=== PATIENT | female | born 1960 | race African-American/Black ===

== ENCOUNTER 2017-08-23 14:15 | Emergency (ER) | payer OTHER ==
[~2017-08-23] VITALS: Ht 152.4 cm; Wt 54.0 kg
[~2017-08-23 14:15] MED LIST: ACETAMINOPHEN500 MG PO; ADVAIR 500/501 DISK IH; CALTRATE 600600 MG PO; CEFDINIR300 MG PO; CETIRIZINE HCL10 M2 PO; DIABETIC TUSSI118 ML PO; DILTZAC ER120 MG PO; FLONASE16 G1 BOTH NARES; METFORMIN HCL500 MG PO; POTASSIUM CHLO10 ME3 PO; PRESERVISIO1 CAPSULE; PREVACID30 MG PO; SINGULAIR10 MG PO; VYTORIN 10-101 EACH PO; ZANAFLEX4 MG PO
[2017-08-23 16:43] LABS: CHLORIDE 107 mEq/L (99-109); POTASSIUM 4.2 mEq/L (3.7-5.4); SODIUM 140 mEq/L (136-147)
[2017-08-23 16:45] LABS: GLUCOSE 84 mg/dL (70-99)
[2017-08-23 16:49] LABS: CREATININE 0.7 mg/dL (0.6-1.3); GFR ESTIMATE (CALCULATED) > 59 mL/min/
[2017-08-23 16:50] LABS: UREA NITROGEN (BUN) 12 mg/dL (9-23)
[2017-08-23 16:52] LABS: HEMOGLOBIN 9.9 G/DL (11.9-15.5); MCH 21.9 PG (29.0-34.0); PLATELET COUNT 394 K/uL (156-360); RBC DIS.WIDTH-CV 22.7 % (11.8-14.6); RED BLOOD COUNT 4.52 M/uL (3.80-5.20); WHITE BLOOD COUNT 6.5 K/uL (4.1-10.2)
[2017-08-23 17:38] LABS: APPEARANCE CLOUDY ((CLEAR)); BILIRUBIN NEGATIVE; BLOOD MODERATE; COLOR YELLOW ((YELLOW)); GLUCOSE (STRIP) NEGATIVE; KETONES 5; LEUKOCYTES LARGE; NITRITE POSITIVE; PROTEIN (STRIP) 100; SPECIFIC GRAVITY 1.016 (1.000-1.030)
[2017-08-23 18:17] LABS: BACTERIA 3+ /HPF; EPITHELIAL CELLS 1+ /HPF; MUCUS 1+ /LPF; RED BLOOD CELLS 0-5 /HPF (0-5); WHITE BLOOD CELLS TNTC /HPF (0-5)
[2017-08-23] MEDS ORDERED: KEFLEX500 MG PO (18:31)
[2017-08-23 18:48] VITALS: BP 141/89
== END 2017-08-23 18:49 | disposition home or self-care (01) ==
LOC: EME 14:15
PROVIDERS: Physician Assistant
DX: N39.0 Urinary tract infection, site not specified (principal); R50.9 Fever, unspecified; G80.9 Cerebral palsy, unspecified; E11.9 Type 2 diabetes mellitus without complications; Z79.84 Long term (current) use of oral hypoglycemic drugs; Z99.3 Dependence on wheelchair; Z87.440 Personal history of urinary (tract) infections; E78.5 Hyperlipidemia, unspecified; I10 Essential (primary) hypertension; J45.909 Unspecified asthma, uncomplicated; K21.9 Gastro-esophageal reflux disease without esophagitis
CPT/HCPCS: 71010; 80048; 81003; 85027; 87077; 87086; 87186; 99281; 99284

== ENCOUNTER → 2017-09-29 | Outpatient (CLI) | payer OTHER ==
[~2017-09-29] VITALS: Ht 134.6 cm; Wt 55.0 kg
[~2017-09-29] MED LIST changes: +ALBUTEROL2.5 MG/3 M IH; +COMPAZINE10 MG PO; +DUCODYL5 MG PO; +KEFLEX500 MG PO; +MAGNESIUM CITR296 M1 PO; +MIRALAX255 GM PO; +MUCINEX DM ER1 EACH PO; +ROBAFEN DM COU118 M1 PO; +SULFAMETHOXAZO1 EAC5 PO
== END | disposition home or self-care (01) ==
LOC: AMB 13:26
PROVIDERS: Internal Medicine Gastroenterology
DX: K22.70 Barrett's esophagus without dysplasia (principal); D12.0 Benign neoplasm of cecum; D12.3 Benign neoplasm of transverse colon; K44.9 Diaphragmatic hernia without obstruction or gangrene; K31.7 Polyp of stomach and duodenum; G80.9 Cerebral palsy, unspecified; Z99.3 Dependence on wheelchair; Z74.8 Other problems related to care provider dependency; E11.9 Type 2 diabetes mellitus without complications; Z79.84 Long term (current) use of oral hypoglycemic drugs; I10 Essential (primary) hypertension; E78.5 Hyperlipidemia, unspecified
CPT/HCPCS: 82948; 88305; 88342 TC; 93005; Q0175

== ENCOUNTER 2017-10-28 11:47 | Emergency (ER) | payer OTHER ==
[~2017-10-28] VITALS: Ht 139.7 cm; Wt 30.7 kg
[2017-10-28 12:46] LABS: HEMATOCRIT 29.9 % (36.0-46.0); HEMOGLOBIN 8.6 G/DL (11.9-15.5); MCH 19.3 PG (29.0-34.0); MCHC 28.8 G/DL (30.0-36.0); MCV 67.2 FL (83-99); PLATELET COUNT 331 K/uL (156-360); RBC DIS.WIDTH-CV 17.9 % (11.8-14.6); RBC DIS.WIDTH-SD 42.5 % (39-53); RED BLOOD COUNT 4.45 M/uL (3.80-5.20); WHITE BLOOD COUNT 7.9 K/uL (4.1-10.2)
[2017-10-28 12:56] LABS: ALBUMIN 4.2 g/dL (3.2-4.8)
[2017-10-28 12:57] LABS: CHLORIDE 106 mEq/L (99-109); SODIUM 141 mEq/L (136-147)
[2017-10-28 12:59] LABS: GLUCOSE 100 mg/dL (70-99); TOTAL PROTEIN 7.6 g/dL (6.4-8.3)
[2017-10-28 13:01] LABS: TOTAL BILIRUBIN 0.2 mg/dL (0.0-1.0)
[2017-10-28 13:02] LABS: ALKALINE PHOSPHATASE 92 IU/L (3-129)
[2017-10-28 13:03] LABS: CREATININE 0.7 mg/dL (0.6-1.3); GFR ESTIMATE (CALCULATED) > 59 mL/min/
[2017-10-28 13:04] LABS: AST (GOT) 15 IU/L (2-34); UREA NITROGEN (BUN) 12 mg/dL (9-23)
[2017-10-28 13:05] LABS: ALT (GPT) 13 IU/L (3-49)
[2017-10-28 13:06] LABS: LIPASE 73 U/L (1.0-51.0)
[2017-10-28 13:51] LABS: APPEARANCE CLOUDY ((CLEAR)); BILIRUBIN NEGATIVE; BLOOD NEGATIVE; COLOR YELLOW ((YELLOW)); GLUCOSE (STRIP) NEGATIVE; KETONES NEGATIVE; LEUKOCYTES LARGE; NITRITE NEGATIVE; PROTEIN (STRIP) 100; SPECIFIC GRAVITY 1.018 (1.000-1.030); UROBILINOGEN 0.2 MG/DL (0.2-1.0)
[2017-10-28 14:31] LABS: RED BLOOD CELLS NONE SEEN /HPF (0-5); WHITE BLOOD CELLS TNTC /HPF (0-5)
[2017-10-28 14:32] LABS: BACTERIA 2+ /HPF; MUCUS NONE SEEN /LPF; UCUL ADDED? YES
[2017-10-28 14:33] LABS: EPITHELIAL CELLS 1+ /HPF
[2017-10-28] MEDS ORDERED: KEFLEX500 MG PO (14:43)
[2017-10-28] MEDS ORDERED: MIRALAX255 GM PO (14:47)
[2017-10-28] MEDS ORDERED: FLEET ENEMA-AD118 ML PR (14:47)
[2017-10-28 17:54] VITALS: BP 117/74
== END 2017-10-28 17:54 | disposition home or self-care (01) ==
LOC: EME 11:47
PROVIDERS: Emergency Medicine
DX: N39.0 Urinary tract infection, site not specified (principal); B96.20 Unspecified Escherichia coli [E. coli] as the cause of diseases classified elsewhere; Z16.11 Resistance to penicillins; K59.00 Constipation, unspecified; N20.0 Calculus of kidney; E11.9 Type 2 diabetes mellitus without complications; I10 Essential (primary) hypertension; E78.5 Hyperlipidemia, unspecified; J45.909 Unspecified asthma, uncomplicated; G80.9 Cerebral palsy, unspecified; H54.7 Unspecified visual loss; Z79.84 Long term (current) use of oral hypoglycemic drugs; Z88.8 Allergy status to other drugs, medicaments and biological substances
CPT/HCPCS: 74177; 80053; 81003; 83690; 85027; 87077; 87086; 87186; 99281; 99284; J0696; J7040

== ENCOUNTER 2017-12-17 21:31 | Inpatient (IN) | payer OTHER ==
[~2017-12-17] VITALS: Ht 147.3 cm; Wt 52.6 kg
[~2017-12-17 21:31] MED LIST changes: +FLEET ENEMA-AD118 ML PR; +NITROFURANTOIN50 MG PO
[2017-12-18 10:23] VITALS: BP 172/93
[2017-12-18 16:22] VITALS: BP 128/70
[2017-12-18 18:45] VITALS: BP 161/82
[2017-12-18 23:04] VITALS: BP 119/60
[2017-12-19] VITALS (12 sets, daily range): BP systolic 99–156; BP diastolic 56–87
[2017-12-19 07:03] LABS: MCH 17.1 PG (29.0-34.0); MCHC 27.5 G/DL (30.0-36.0); MCV 62.3 FL (83-99); PLATELET COUNT 495 K/uL (156-360); RBC DIS.WIDTH-CV 20.3 % (11.8-14.6); RBC DIS.WIDTH-SD 44.8 % (39-53); RED BLOOD COUNT 3.85 M/uL (3.80-5.20); WHITE BLOOD COUNT 9.5 K/uL (4.1-10.2)
[2017-12-19 07:04] LABS: HEMOGLOBIN 6.6 G/DL (11.9-15.5)
[2017-12-19 07:29] LABS: CHLORIDE 101 MEQ/L (99-109); CREATININE 0.6 MG/DL (0.6-1.3); GFR ESTIMATE (CALCULATED) > 59 mL/min/; GLUCOSE 85 mg/dL (70-99); POTASSIUM 3.8 MEQ/L (3.7-5.4); SODIUM 139 MEQ/L (136-147); UREA NITROGEN (BUN) 7 mg/dL (9-23)
[2017-12-20 03:51] VITALS: BP 131/76
[2017-12-20 07:28] LABS: HEMATOCRIT 32.6 % (36.0-46.0); MCHC 30.4 G/DL (30.0-36.0); PLATELET COUNT 379 K/uL (156-360); RBC DIS.WIDTH-CV 23.9 % (11.8-14.6); RBC DIS.WIDTH-SD 58.6 % (39-53); WHITE BLOOD COUNT 8.6 K/uL (4.1-10.2)
[2017-12-20 07:29] LABS: HEMOGLOBIN 9.9 G/DL (11.9-15.5); MCH 20.9 PG (29.0-34.0); MCV 68.9 FL (83-99); RED BLOOD COUNT 4.73 M/uL (3.80-5.20)
[2017-12-20 07:30] VITALS: BP 140/74
[2017-12-20 11:00] VITALS: BP 130/80
[2017-12-20 15:13] VITALS: BP 138/75
[2017-12-20 18:49] VITALS: BP 142/86
[2017-12-20 23:11] VITALS: BP 141/79
[2017-12-21 03:26] VITALS: BP 167/86
[2017-12-21 07:25] VITALS: BP 164/84
[2017-12-21 11:00] VITALS: BP 146/90
[2017-12-21 15:20] VITALS: BP 174/95
[2017-12-21 19:32] VITALS: BP 140/82
[2017-12-21 23:42] VITALS: BP 132/76
[2017-12-22 07:54] VITALS: BP 163/91
[2017-12-22 16:05] VITALS: BP 153/67
[2017-12-22 22:41] VITALS: BP 136/85
[2017-12-23 07:33] VITALS: BP 167/83
[2017-12-23 11:58] VITALS: BP 115/64
[2017-12-23 16:26] VITALS: BP 139/74
[2017-12-23 23:06] VITALS: BP 155/79
[2017-12-24 07:41] VITALS: BP 143/79
[2017-12-24 16:58] VITALS: BP 132/72
[2017-12-24 23:28] VITALS: BP 138/79
[2017-12-25 07:05] VITALS: BP 160/77
== END 2017-12-25 17:44 | disposition home or self-care (01) | DRG 330 ==
LOC: ENRESERV 21:31 → 5EAST 12-18 09:17 → 2SOUTH 12-18 09:17 → SDC 12-18 11:31 → EDSTATUS 12-18 13:41 → 2SOUTH 12-18 13:42 → ENRESERV 12-18 15:04 → 5EAST 12-18 15:53 → ENPENDDIS 12-25 → 5EAST 12-25 17:44
PROVIDERS: Surgery
PROC: 0DTF4ZZ Resection of Right Large Intestine, Percutaneous Endoscopic Approach (ICD-10-PCS; principal; 2017-12-18)
DX: D12.0 Benign neoplasm of cecum (principal); F72 Severe intellectual disabilities; E78.5 Hyperlipidemia, unspecified; G80.9 Cerebral palsy, unspecified; I10 Essential (primary) hypertension; J45.909 Unspecified asthma, uncomplicated; K21.9 Gastro-esophageal reflux disease without esophagitis; E11.51 Type 2 diabetes mellitus with diabetic peripheral angiopathy without gangrene; K63.9 Disease of intestine, unspecified; H26.9 Unspecified cataract; Z99.3 Dependence on wheelchair
CPT/HCPCS: 36415; 80048; 81003; 82948; 85025; 85027; 86850; 86900; 86901; 86920; 88309; 94799; J0131; J1100; J1170; J1644; J2001; J2405; J2710; J2765; J2795; J3010; J3475; J7120; P9016; S0020; S0074

== ENCOUNTER 2018-05-01 11:13 | Emergency (ER) | payer OTHER ==
[~2018-05-01] VITALS: Ht 144.8 cm; Wt 57.0 kg
[2018-05-01 12:13] LABS: HEMATOCRIT 44.3 % (36.0-46.0); HEMOGLOBIN 14.2 G/DL (11.9-15.5); MCH 25.6 PG (29.0-34.0); MCHC 32.1 G/DL (30.0-36.0); MCV 79.8 FL (83-99); PLATELET COUNT 228 K/uL (156-360); RBC DIS.WIDTH-CV 17.8 % (11.8-14.6); RBC DIS.WIDTH-SD 51.1 % (39-53); RED BLOOD COUNT 5.55 M/uL (3.80-5.20); WHITE BLOOD COUNT 7.3 K/uL (4.1-10.2)
[2018-05-01 12:25] LABS: CHLORIDE 105 mEq/L (99-109); POTASSIUM 4.4 mEq/L (3.7-5.4); SODIUM 138 mEq/L (136-147)
[2018-05-01 12:26] LABS: GLUCOSE 201 mg/dL (70-99)
[2018-05-01 12:30] LABS: CREATININE 0.8 mg/dL (0.6-1.3); GFR ESTIMATE (CALCULATED) > 59 mL/min/
[2018-05-01 12:31] LABS: UREA NITROGEN (BUN) 13 mg/dL (9-23)
[2018-05-01 14:37] VITALS: BP 120/67
== END 2018-05-01 14:49 | disposition home or self-care (01) ==
LOC: EME 11:13
PROVIDERS: Nurse Practitioner Family
DX: K59.00 Constipation, unspecified (principal); I10 Essential (primary) hypertension; J45.909 Unspecified asthma, uncomplicated; E11.9 Type 2 diabetes mellitus without complications; E78.5 Hyperlipidemia, unspecified; Z79.84 Long term (current) use of oral hypoglycemic drugs; Z88.8 Allergy status to other drugs, medicaments and biological substances
CPT/HCPCS: 74022; 80048; 81003; 85027; 99281; 99285